=== PATIENT | female | born 1950 | race Caucasian/White ===

== ENCOUNTER → 2018-03-04 | Outpatient (CLI) | payer MEDICARE | END | disposition home or self-care (01) | LOC: CFH 08:43 | PROVIDERS: ATTEND Internal Medicine Cardiovascular Disease | DX: I25.89 Other forms of chronic ischemic heart disease (principal) | CPT/HCPCS: 78452; 93017; A9502 ==

== ENCOUNTER 2018-03-25 11:17 | Day surgery (SDC) | payer MEDICARE ==
[2018-03-24 11:53] LABS: BASOPHILS # (AUTO) 0.04 x10^3/uL (0-0.1); BASOPHILS % (AUTO) 1 % (0-1); EOSINOPHILS # (AUTO) 0.13 x10^3/uL (0-0.4); EOSINOPHILS % (AUTO) 3 % (1-7); LYMPHOCYTES % (AUTO) 32 % (22-44); MD NO; MEAN CORPUSCULAR HEMOGLOBIN 29.1 pg (27.0-34.8); MEAN CORPUSCULAR HGB CONC 33.7 g/dL (32.4-35.8); MEAN CORPUSCULAR VOLUME 86.3 fL (80-100); MEAN PLATELET VOLUME 8.9 fL (7.4-10.4); MONOCYTES # (AUTO) 0.34 x10^3/uL (0.2-0.8); MONOCYTES % (AUTO) 7 % (2-9); NEUTROPHILS # (AUTO) 2.98 x10^3/uL (1.8-6.8); NEUTROPHILS % (AUTO) 59 % (42-75); PLATELET COUNT 111 x10^3/uL (130-400); RED BLOOD COUNT 4.79 x10^6/uL (3.82-5.3); RED CELL DISTRIBUTION WIDTH 14.3 % (9.6-15.2)
[2018-03-24 11:59] LABS: ALANINE AMINOTRANSFERASE 30 U/L (12-78); ALBUMIN 3.3 g/dL (3.4-5.0); ANION GAP 3 mmol/L (5-15); CALCIUM 9.4 mg/dL (8.5-10.1); CHLORIDE 102 mmol/L (98-107); CREATININE 1.01 mg/dL (0.55-1.02)
[2018-03-24 12:02] LABS: ALKALINE PHOSPHATASE 84 U/L (45-117); BILIRUBIN,TOTAL 1.1 mg/dL (0.2-1.0); TOTAL PROTEIN 7.4 g/dL (6.4-8.2)
[~2018-03-25] VITALS: Ht 167.6 cm; Wt 77.3 kg
[~2018-03-25 11:17] MED LIST: AMLO5TAB2 PO; CHOL200024 PO; FISH OIL PO; GLIM4TAB2 PO; LEVO75TA5 PO; LISINOPRIL/HCTZ PO; METF500T5 PO; NITR0.4T28 SL; POTA10TA5 PO; VITA1TAB19 PO
[2018-03-25] MEDS ORDERED: SODIUM CHLORIDE 0.9% 1,000 ML IV ONE (11:32)
[2018-03-25 11:41] VITALS: BP 179/81
[2018-03-25] MEDS ORDERED: ASPIRIN 325 MG TABLET EC PO ONE (12:00)
[2018-03-25] MEDS ORDERED: ASPIRIN 325 MG TABLET EC ONE (12:13)
[2018-03-25] MEDS ORDERED: MIDAZOLAM 1 MG/ML, 2ML ONE (12:58)
[2018-03-25] MEDS ORDERED: FENTANYL PF 100 MCG/2ML ONE (12:58)
[2018-03-25] MEDS ORDERED: HEPARIN 1,000 UNITS/ML, 10ML ONE (12:59)
[2018-03-25] MEDS ORDERED: VERAPAMIL 2.5 MG/ML, 2ML ONE (12:59)
[2018-03-25] MEDS ORDERED: LIDOCAINE 2%, 2ML ONE (12:59)
[2018-03-25] MEDS ORDERED: NITROGLYCERIN 5 MG/ML, 10ML ONE (13:01)
[2018-03-25] MEDS ORDERED: DIPHENHYDRAMINE 50 MG/ML, 1ML ONE (13:21)
[2018-03-25] MEDS ORDERED: SODIUM CHLORIDE 0.9% 1,000 ML IV SCH (14:03)
== END 2018-03-25 16:05 ==
LOC: CACL 11:17
PROVIDERS: ATTEND Internal Medicine Cardiovascular Disease
DX: I25.10 Atherosclerotic heart disease of native coronary artery without angina pectoris (principal); E11.9 Type 2 diabetes mellitus without complications; I10 Essential (primary) hypertension; E78.5 Hyperlipidemia, unspecified; E78.00 Pure hypercholesterolemia, unspecified; E03.9 Hypothyroidism, unspecified; Z88.1 Allergy status to other antibiotic agents
CPT/HCPCS: 36415; 80053; 85025; 93458; 99156; C1769; C1894; J1644; J2250; J3010; J3490; J1200; J7030; Q9967